=== PATIENT | female | born 1995 | race African-American/Black ===

== ENCOUNTER 2022-08-04 16:47 | Emergency (ER) | payer OTHER ==
[~2022-08-04] VITALS: Ht 170.2 cm; Wt 112.6 kg
[~2022-08-04 16:47] MED LIST: PREDNISONE20 MG PO; TAMIFLU75 MG PO; VENTOLIN HFA18 GM INH
[2022-08-04] MEDS ORDERED: BENADRYL25 M1 PO (17:40)
[2022-08-04] MEDS ORDERED: LISINOPRIL5 MG PO (17:40)
[2022-08-04] MEDS ORDERED: ACETAMINOPHEN 325 MG TAB ONE (18:36)
[2022-08-04] MEDS ORDERED: NIFEDIPINE ER30 M1 PO (18:39)
[2022-08-04] MEDS ORDERED: ACETAMINOPHEN 325 MG TAB PO ONE (18:45)
== END 2022-08-04 18:45 | disposition home or self-care (01) ==
LOC: FSED 16:55
DX: O26.91 Pregnancy related conditions, unspecified, first trimester (principal); H57.12 Ocular pain, left eye; I10 Essential (primary) hypertension; R51.9 Headache, unspecified; R10.30 Lower abdominal pain, unspecified; J45.909 Unspecified asthma, uncomplicated
CPT/HCPCS: 81003; 81025; 99283

== ENCOUNTER 2023-08-30 11:52 | Emergency (ER) | payer OTHER ==
[~2023-08-30] VITALS: Ht 170.2 cm; Wt 103.0 kg
[~2023-08-30 11:52] MED LIST changes: +ACETAMINOPHEN-1 EAC4; +ADDERALL XR 2020 MG; +ALBUTEROL1.25 MG/3 NEB; +BENADRYL25 M1 PO; +BREO ELLIPTA 21 EACH INH; +BUPROPION XL150 MG PO; +CETIRIZINE HCL10 MG; +CORICIDIN HBP1 EACH PO; +DIPHENHYDRAMINE25 MG PO; +ESTARYLLA 0.251 EACH; +FLONASE ALLERG9.9 ML INH; +IBUPROFEN600 MG PO; +LISINOPRIL5 MG PO; +NIFEDIPINE ER30 M1 PO; +VALACYCLOVIR1000 MG
[2023-08-30] MEDS ORDERED: CEFUROXIME500 MG PO (12:44)
[2023-08-30] MEDS ORDERED: NAPROSYN500 MG PO (12:45)
[2023-08-30] MEDS ORDERED: CYCLOBENZAPRINE10 MG PO (12:46)
[2023-08-30 14:32] VITALS: BP 124/73; PULSE 72; RESP 18; TEMP 98.2; O2SAT 98
== END 2023-08-30 13:55 | disposition home or self-care (01) ==
LOC: FSED 12:04
DX: M54.50 Low back pain, unspecified (principal); N39.0 Urinary tract infection, site not specified; M62.830 Muscle spasm of back; I10 Essential (primary) hypertension; J45.909 Unspecified asthma, uncomplicated; K21.9 Gastro-esophageal reflux disease without esophagitis; F41.9 Anxiety disorder, unspecified; F90.9 Attention-deficit hyperactivity disorder, unspecified type
CPT/HCPCS: 99284

== ENCOUNTER 2024-10-21 13:15 | Emergency (ER) | payer SELFPAY ==
[~2024-10-21] VITALS: Ht 172.7 cm; Wt 114.4 kg
[~2024-10-21 13:15] MED LIST changes: +CEFUROXIME500 MG PO; +CYCLOBENZAPRINE10 MG PO; +NAPROSYN500 MG PO
[2024-10-21] MEDS: ONDANSETRON HCL INJ 2MG/ML 2ML 2 MG/ML VIAL IV STA (14:05)
[2024-10-21] MEDS: AMLODIPINE BESYLATE 5 MG TAB PO ONE (14:05)
[2024-10-21] MEDS: Morphine 4mg INJECTION 4 MG/ML INJ IV ONE (14:06)
[2024-10-21] MEDS: KETOROLAC TROMETHAMINE 30 MG/ML VIAL IV STA (14:06)
[2024-10-21] MEDS: HYDROCODONE/APAP 5MG-325MG TAB PO ONE (17:24)
[2024-10-21 17:28] VITALS: PULSE 66; RESP 18; TEMP 98.4; O2SAT 100
[2024-10-21] MEDS ORDERED: AMLODIPINE BESYL5 MG PO (17:29)
[2024-10-21] MEDS ORDERED: HYDROCODON-ACE1 EA11 PO (17:29)
== END 2024-10-21 17:39 | disposition home or self-care (01) ==
LOC: FSED 13:20
DX: N93.8 Other specified abnormal uterine and vaginal bleeding (principal); N83.202 Unspecified ovarian cyst, left side; R51.9 Headache, unspecified; N64.4 Mastodynia; I10 Essential (primary) hypertension; K21.9 Gastro-esophageal reflux disease without esophagitis; J45.909 Unspecified asthma, uncomplicated; F41.9 Anxiety disorder, unspecified; F32.A Depression, unspecified; F90.9 Attention-deficit hyperactivity disorder, unspecified type
CPT/HCPCS: 70450; 74176; 76830; 76856; 80048; 80076; 81003; 81025; 85025; 96374; 96375; 99284; J1885; J2270; J2405